=== PATIENT | female | born 1960 | race Asian ===

== ENCOUNTER 2020-12-03 09:52 | Emergency (ER) | payer OTHER ==
[~2020-12-03] VITALS: Ht 154.9 cm; Wt 63.5 kg
[~2020-12-03 09:52] MED LIST: FLAGYL500 MG PO; NORCO 5-325 TA1 EACH PO; ONDANSETRON HCL4 M2 PO; PROTONIX40 M1 PO; SKELAXIN 800 M800 M1 PO
[2020-12-03 10:47] LABS: ABSOLUTE LYMPHOCYTES 1.1 thou/uL (0.8-5.3); ABSOLUTE MONOCYTES 0.3 thou/uL (0.0-1.2); ABSOLUTE NEUTROPHILS 4.3 thou/uL (1.6-8.1); BASOPHILS 0.5 %; EOSINOPHILS 0.7 %; HEMATOCRIT 41.1 % (37.0-47.0); HEMOGLOBIN 13.8 gm/dL (12.0-15.0); LYMPHOCYTES 19.5 %; MCH 31.5 pg (26.0-34.0); MCHC 33.6 g/dL (28.0-37.0); MCV 93.7 fL (80.0-100.0); MONOCYTES 5.9 %; MPV 8.3 fl. (7.2-11.1); NUCLEATED RBCS 0 /100WBC; PLATELET COUNT* 203 thou/uL (150-400); POLYS 73.4 %; RBC 4.39 mil/uL (4.20-5.00); RDW-CV 12.4 % (10.5-14.5); WBC 5.8 thou/uL (4.0-11.0)
[2020-12-03 10:52] LABS: URINE BILIRUBIN NEGATIVE (Negative); URINE BLOOD NEGATIVE (Negative); URINE CLARITY CLEAR; URINE COLOR YELLOW; URINE GLUCOSE-RANDOM NEGATIVE (Negative); URINE KETONES NEGATIVE (Negative); URINE LEUKOCYTES-REFLEX NEGATIVE (Negative); URINE NITRITE-REFLEX NEGATIVE (Negative); URINE PROTEIN NEGATIVE (Negative); URINE UROBILINOGEN 0.2 E.U./dl (0.2-1.0)
[2020-12-03 10:53] LABS: CALCIUM 9.1 mg/dL (8.5-10.1); POTASSIUM 4.2 mmol/L (3.5-5.1)
[2020-12-03 10:57] LABS: ALBUMIN 4.2 g/dL (3.4-5.0); TOTAL BILIRUBIN 0.4 mg/dL (<0.1-1.0); TOTAL PROTEIN 7.3 g/dL (6.4-8.2)
[2020-12-03 12:53] VITALS: BP 130/57
--- NOTE | 2020-12-03 14:22 | EKG ---
[place] [address] ELECTROCARDIOGRAM REPORT Name: RADHA ANDINO Room: [facility]#: [id number] Admission: 12/03/20 Attend Phys: Discharge: 12/03/20 Date of : 64 Date of Service: 12/03/20 1009 Report #: [id number] THIS REPORT FOR: //name// [facility] ED Test Date: 2020-12-03 Test Time: 10:09:03 Pat Name: RADHA ANDINO Department: Room: Gender: F [employer]: [employer] : 1960 Requested By: Karlos Rodriguez Order Number: [id number] MD: Tavo Tabares Measurements Intervals [place] Rate: 57 P: 33 UT: 161 QRS: 12 QRSD: 93 T: 10 QT: 429 QTc: 418 Interpretive Statements Sinus rhythm Atrial premature complex Low voltage, precordial leads Compared to ECG 04/13/2015 00:44:33 Atrial premature complex(es) now present Low QRS voltage now present Electronically Signed On 12-03-2020 14:21:47 CDT by Tavo Tabares [email or web address] <ELECTRONICALLY SIGNED> By: Tavo Tabares MD, FACC 12/03/20 1421 1009 1009 Tavo Tabares MD, FACC /EPI
== END 2020-12-03 12:55 | disposition home or self-care (01) ==
LOC: M.ERS 09:52
PROVIDERS: Family Medicine
DX: R55 Syncope and collapse (principal); M25.512 Pain in left shoulder; R51.9 Headache, unspecified; K21.9 Gastro-esophageal reflux disease without esophagitis; Z90.49 Acquired absence of other specified parts of digestive tract; Z79.899 Other long term (current) drug therapy; W19.XXXA Unspecified fall, initial encounter; Y93.89 Activity, other specified; Y92.89 Other specified places as the place of occurrence of the external cause; Y99.8 Other external cause status